=== PATIENT | female | born 1955 | race Caucasian/White ===

== ENCOUNTER 2024-06-01 13:50 | Outpatient (CLI) | payer MEDICARE, SELFPAY | END 2024-06-01 13:51 | disposition home or self-care (01) | LOC: AMB 06-13 03:02 | PROVIDERS: Visit Provider Internal Medicine | DX: S49.92XA Unspecified injury of left shoulder and upper arm, initial encounter (principal); W10.8XXA Fall (on) (from) other stairs and steps, initial encounter; Y92.008 Other place in unspecified non-institutional (private) residence as the place of occurrence of the external cause | CPT/HCPCS: A0425; A0427 ==

== ENCOUNTER 2024-06-01 14:27 | Emergency (ER) | payer MEDICARE, SELFPAY ==
[2024-06-01] VITALS (10 sets, daily range): BP systolic 120–131; BP diastolic 67–73; PULSE 81–91; RESP 17–24; TEMP 36.1; O2SAT 90–97; BMI 35.7
--- NOTE | 2024-06-01 14:42 | CRLHL7_ITS ---
For Patients: As a result of the Cures Act, medical imaging exams and procedure reports are released immediately into your electronic medical record. You may view this report before your referring provider. If you have questions, please contact your health care provider. Indication: Fall. Technique: Left elbow, 2 views. Comparison: None. Findings/Impression: Bones/joint spaces: Acute elbow dislocation with lateral and posterior subluxation of the ulna/radius. Possible associated nondisplaced radial head fracture. Otherwise no displaced fracture. Soft tissues: Unremarkable. Dictated by Norris Benton MD @ 06/01/2024 3:29:49 PM (Electronically Signed)
--- NOTE | 2024-06-01 14:43 | CRLHL7_ITS ---
For Patients: As a result of the Cures Act, medical imaging exams and procedure reports are released immediately into your electronic medical record. You may view this report before your referring provider. If you have questions, please contact your health care provider. INDICATION: Fall, shoulder Injury TECHNIQUE: Shoulder radiograph 3 views left COMPARISON: None FINDINGS: Bone: No acute fractures or aggressive bone lesions are identified. Moderate diffuse osteopenia is present. Joint: The glenohumeral joint is unremarkable. 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 Soft tissue: Unremarkable. The visualized hemithorax is unremarkable in appearance. No radiopaque foreign bodies are seen. IMPRESSION: 1. No acute osseous injuries or abnormalities are noted. Dictated by Jonathan Swartz MD @ 06/01/2024 3:31:07 PM Dictated by: Jonathan Swartz MD @ 06/01/2024 15:31:14 (Electronically Signed)
--- NOTE | 2024-06-01 15:26 | CRLHL7_ITS ---
For Patients: As a result of the Cures Act, medical imaging exams and procedure reports are released immediately into your electronic medical record. You may view this report before your referring provider. If you have questions, please contact your health care provider. Indication: Postreduction Technique: Two views of the left elbow Comparison: Same day left elbow radiograph Findings/Impression: Successful reduction of the previously visualized posterior elbow dislocation with the elbow now in anatomic alignment. No definitive radiographic evidence of a radial head fracture. Dictated by Josh Lopez MD @ 06/01/2024 4:00:54 PM (Electronically Signed)
--- NOTE | 2024-06-01 15:44 | ED.GENADULT ---
HPI - General Adult General Chief complaint: Extremity Pain/Injury, Upper Stated complaint: Fall Time Seen by Provider: 06/01/24 14:38 History of Present Illness HPI narrative: Patient is a 69-year-old woman who was in town at [facility] when she stumbled and fell landing awkwardly on her left elbow. She was assessed by bystanders and brought in to the emergency room splinted. Upon arrival she was noted on x-ray to have a dislocated elbow. Patient had no head injuries. No palpitations no chest pain shortness a breath. She does not have any abrasions and her pain is localized only to the left elbow. Related Data Home Medications ?Medication ?Instructions ?Recorded ?Confirmed amlodipine 5 mg tablet 5 mg PO DAILY 06/01/24 06/01/24 atorvastatin 40 mg tablet 40 mg PO DAILY 06/01/24 06/01/24 bisacodyl 5 mg tablet (Laxative 20 mg PO QPM 06/01/24 06/01/24 (bisacodyl)) ergocalciferol (vitamin D2) 1,250 1,250 mcg PO 06/01/24 mcg (50,000 unit) capsule fluticasone 250 mcg-salmeterol 50 1 ea inhalation BID 06/01/24 06/01/24 mcg/dose blistr powdr for inhalation (Brian Inhangelica) folic acid 1 mg tablet 1 mg PO DAILY 06/01/24 06/01/24 lisinopril 40 mg tablet 40 mg PO DAILY 06/01/24 06/01/24 metformin 500 mg tablet,extended 1,000 mg PO BID 06/01/24 06/01/24 release 24 hr omeprazole 20 mg capsule,delayed 20 mg PO DAILY 06/01/24 06/01/24 release venlafaxine 150 mg 150 mg PO DAILY 06/01/24 06/01/24 capsule,extended release 24 hr Allergies Allergy/AdvReac Type Severity Reaction Status Date / Time No Known Drug Allergies Allergy Verified 06/01/24 14:42 Review of Systems Status of ROS: Reports: 10 or more systems reviewed and unremarkable except as noted in History and below Exam Narrative: Exam Narrative: EXAM GENERAL: Patient appears comfortable and well. EYES: No scleral icterus. ENT: Tympanic membranes and oropharynx normal. THYROID: no thyroid nodules or thyromegaly. LYMPH: No supraclavicular or cervical lymphadenopathy. SKIN: Visible skin seen during exam normal or with benign process only. EXT: Obviously dislocated left elbow noted. HEART: Regular rate and rhythm with no murmurs, rubs, or gallops. LUNGS: Clear to auscultation bilaterally with no crackles or wheezes. ABD: Soft, non tender, non distended. PSYCH: Good eye contact, speech is not pressured. Const: Vital Signs, click to edit/add: Vital Signs - 24 hr 06/01/24 14:42 Temperature 97 F L Pulse Rate [Pulse Oximeter] 88 Respiratory Rate 18 Blood Pressure [Ri t Upper Arm] 120/69 Pulse Oximetry 97 Oxygen Delivery Me thod Room Air Course Course ED Course: Patient seen and examined. X-ray of the left shoulder and elbow show only a dislocated left elbow with questionable underlying fracture. Vital Signs Vital signs: Initial Vital Signs Temperature 97 F L 06/01/24 14:42 Temperature Source Temporal Artery Scan 06/01/24 14:42 Pulse Rate 88 06/01/24 14:42 Respiratory Rate 18 06/01/24 14:42 Blood Pressure 120/69 06/01/24 14:42 Blood Pressure Mean 86 06/01/24 14:42 Pulse Oximetry 97 06/01/24 14:42 Oxygen Delivery Method Room Air 06/01/24 14:42 Vital Signs Temperature 97 F L 06/01/24 14:42 Pulse Rate 88 06/01/24 14:42 Respiratory Rate 18 06/01/24 14:42 Blood Pressure 120/69 06/01/24 14:42 Pulse Oximetry 97 06/01/24 14:42 Oxygen Delivery Method Room Air 06/01/24 14:42 Temperature 97 F L 06/01/24 14:42 Pulse Rate 88 06/01/24 14:42 Respiratory Rate 18 06/01/24 14:42 Blood Pressure 120/69 06/01/24 14:42 Pulse Oximetry 97 06/01/24 14:42 Oxygen Delivery Method Room Air 06/01/24 14:42 Medical Decision Making MDM Narrative Medical decision making narrative: Patient is a 69-year-old woman who fell earlier today dislocating her left elbow. She had no other injuries. We did see only the dislocated elbow on x-ray. Of propofol was used to anesthetize the patient in the elbow was reduced with traction. She is now in a sling which she will remain in until she sees Orthopedics. Patient questionable underlying subtle fracture the treatment of which will be the same with a sling. I did recommend Tylenol Motrin ice and orthopedic follow-up in the next 3-4 days. Discharge Plan Discharge Clinical Impression: Dislocated elbow Patient Disposition: Home, Self-Care Condition: Stable Instructions: Elbow Dislocation (ED) Additional Instructions: Ice Tylenol Motrin Sling Follow-up with orthopedics next week. Activity Level: No Restrictions Discharge Diet: Regular Prescriptions: No Action atorvastatin 40 mg tablet 40 mg PO DAILY fluticasone propion-salmeterol [Wixela Inhub] 250-50 mcg/dose blister with device 1 ea INHALATION BID venlafaxine 150 mg capsule,extended release 24hr 150 mg PO DAILY amlodipine 5 mg tablet 5 mg PO DAILY omeprazole 20 mg capsule,delayed release(DR/EC) 20 mg PO DAILY folic acid 1 mg tablet 1 mg PO DAILY ergocalciferol (vitamin D2) 1,250 mcg (50,000 unit) capsule 1,250 mcg PO lisinopril 40 mg tablet 40 mg PO DAILY metformin 500 mg tablet extended release 24 hr 1,000 mg PO BID Laxative (bisacodyl) 5 mg tablet 20 mg PO QPM Follow Up/Referrals: Judie Bella MD [Primary Care Provider] - Stand Alone Forms: [employer] Info Instructions
[2024-06-01] MEDS: PROPOFOL 10 MG/ML INJ 200 MG IVP (15:48)
[2024-06-01] MEDS: ACETAMINOPHEN 500 MG TABLET 1000 MG PO (15:57)
== END 2024-06-01 16:20 | disposition home or self-care (01) ==
PROVIDERS: Emergency Provider Internal Medicine; PCP Internal Medicine
DX: S53.025A Posterior dislocation of left radial head, initial encounter (principal); W01.0XXA Fall on same level from slipping, tripping and stumbling without subsequent striking against object, initial encounter
CPT/HCPCS: 24605; 73030; 73070; 99283; 99291; A9270; J2704